=== PATIENT | female | born 1970 | race Caucasian/White ===

== ENCOUNTER 2023-06-08 14:44 | Emergency (ER) | payer OTHER, SELFPAY ==
--- NOTE | ~2023-06-08 | XR_ITS ---
EXAM: XR shoulder LT min 2V DATE: 06/08/2023 15:10 HISTORY: fall, pain to left shoulder today limited rom . COMPARISON: None available. FINDINGS: Decreased mineralization. No fracture or dislocation. No lytic or blastic lesion. Mild AC joint and glenohumeral joint degenerative change. No erosion or periosteal change. Soft tissues withi n normal limits. IMPRESSION: No acute osseous finding in the left shoulder. Reviewed, dictated and finalized at location [facility]. [employer]
[2023-06-08 14:52] VITALS: BP 130/74; PULSE 76; RESP 16; TEMP 36.6; O2SAT 100
--- NOTE | 2023-06-08 16:00 | ED.GENADULT ---
HPI - General Adult General Chief complaint: Extremity Injury, Upper Stated complaint: left shoulder injury Source: patient Mode of arrival: ambulatory Limitations: no limitations History of Present Illness HPI narrative: Patient presents for evaluation of left shoulder pain. She indicates she was walking with a four-post cane in her backyard around 1330 when she fell and hit her left shoulder against the ground. She did not hit her head. No LOC. She is not on blood thinners. She now reports 10/10 pain in the affected joint. No descriptive quality of the pain. No radicular component. Pain is worse with movement and palpation of the affected area. No paresthesias. She is right-hand dominant. Mother brought her for further evaluation. Patient has an underlying history of renal cell carcinoma and has completed T cell therapy for it. She states she had a prolonged hospitalization recently and was discharged home about one month ago. She occasionally gets dizzy but it has only happened one other time since her hospital discharge about 1 month ago. She denies any other symptoms that preceded the fall. She denies any other injuries related to the fall. Related Data Home Medications Medication Instructions Recorded Confirmed amlodipine 5 mg tablet 5 mg PO DAILY 06/08/23 06/08/23 atovaquone 750 mg/5 mL oral mg 06/08/23 suspension cyanocobalamin (vitamin B-12) 1,000 mcg IM MONTHLY 06/08/23 06/08/23 1,000 mcg/mL injection solution fluoxetine 10 mg capsule 10 mg PO DAILY 06/08/23 06/08/23 levothyroxine 175 mcg tablet 175 mcg PO DAILY 06/08/23 06/08/23 lidocaine 5 % topical patch 1 patch topical DAILY 06/08/23 06/08/23 lorazepam 1 mg tablet 1 mg PO PRN PRN Anxiety 06/08/23 06/08/23 metoclopramide HCl 5 mg tablet 5 mg PO QMWFSU 06/08/23 06/08/23 ondansetron HCl 8 mg tablet 8 mg PO Q6-8H PRN Nausea And 06/08/23 06/08/23 Vomiting oxcarbazepine 300 mg tablet 300 mg PO TID 06/08/23 06/08/23 pantoprazole 40 mg tablet,delayed 40 mg PO DAILY 06/08/23 06/08/23 release ursodiol 300 mg capsule 300 mg PO BID 06/08/23 06/08/23 valacyclovir 500 mg tablet mg 06/08/23 Allergies Allergy/AdvReac Type Severity Reaction Status Date / Time codeine Allergy Gastrointestinal Verified 06/08/23 15:03 Upset Review of Systems Review of Systems: CONSTITUTIONAL: Denies fever, chills, or sweats. EYES: Denies visual changes, redness, or discharge. ENT: Denies rhinorrhea, congestion, sore throat, or otalgia. CARDIOVASCULAR: Denies chest pain, palpitations, or edema. RESPIRATORY: Denies cough or dyspnea. GASTROINTESTINAL: Denies abdominal pain, nausea, vomiting, or diarrhea. GENITOURINARY: Denies dysuria or hematuria. SKIN: Denies rash or itching. MUSCULOSKELETAL: Reports left shoulder pain. NEUROLOGIC: Reports dizziness earlier prior to her follow-up, now resolved. Denies headache, numbness, dizziness, or weakness. PSYCHIATRIC: Denies anxiety or depression. [facility] Past Medical History Medical History (Updated 06/08/23 @ 16:12 by TYE HinesP, ) Hypoglycemia Renal cell carcinoma Surgical History Surgical History No pertinent past surgical history Family History Family History Mother Family history non-contributory Other Hypertension Social History Social History Smoking status: Never smoker Substance use: never Living arrangements: with family Gender identity (if verbalized by the patient): Female Sexual Orientation (if Verbalized by the Patient): Straight or Heterosexual Spiritual care concerns: No Exam Narrative: GENERAL: Well-appearing, well-nourished, and in no acute distress. HEAD: Normocephalic, atraumatic. EYES: PERRLA and EOMI. ENT: Nares clear, no rhinorrhea or epistaxis. Mucous membranes moist.
[2023-06-08 16:10] LABS: Glucose Point of Care 98 mg/dl (65-105)
== END 2023-06-08 16:17 | disposition home or self-care (01) ==
PROVIDERS: Emergency Provider Nurse Practitioner
DX: S40.012A Contusion of left shoulder, initial encounter (principal); W19.XXXA Unspecified fall, initial encounter; R42 Dizziness and giddiness; Z85.528 Personal history of other malignant neoplasm of kidney
CPT/HCPCS: 73030; 82948; 99203; G0463

== ENCOUNTER 2023-12-26 08:43 | Emergency (ER) | payer OTHER, SELFPAY ==
--- NOTE | ~2023-12-26 | XR_ITS ---
EXAMINATION: XR chest 2V DATE: 12/26/2023 09:18 INDICATION: Cough. Right lung mass. TECHNIQUE: frontal and lateral views of the chest were obtained. COMPARISON: None FINDINGS: Opacification of the inferior half of the right hemithorax suggesting a unilateral small to moderate- sized right pleural effusion and associated atelectasis. Underlying pneumonia or malignancy is not ex cludable. Left lung remains clear. No pulmonary edema, pneumothorax or left-sided pleural effusion. P ostoperative changes in the right hemithorax with multiple surgical clips at the right hilum. There i s slight rightward shift of the likely normal sized heart and mediastinum suggesting volume loss in t he right hemithorax. Additional surgical clips project over the inferior right hemithorax could repre sent cholecystectomy clips in the more cephalad than typical with elevation of the right hemidiaphrag m which is obscured by the adjacent pleural effusion and/or lung disease. IMPRESSION: 1. Opacification of the inferior half of the right hemithorax which could represent a small or modera te sized pleural effusion (favor the former as there are secondary signs of volume loss in the right hemithorax) and associated atelectasis. Underlying pneumonia or malignancy not excludable. 2. Surgical clips at the right hilum. Correlate for history of possible prior partial right pneumonec aris. Reviewed, dictated and finalized at location [facility]. IMPRESSION: 1. Opacification of the inferior half of the right hemithorax which could repre sent a small or moderate sized pleural effusion (favor the former as there are secondary signs of volume loss in the right hemithorax) and associated atelecta sis. Underlying pneumonia or malignancy not excludable. 2. Surgical clips at the right hilum. Correlate for history of possible prior p artial right pneumonectomy.
[2023-12-26 08:45] VITALS: BP 119/82; PULSE 112; RESP 20; TEMP 36.6; O2SAT 100
[2023-12-26 08:56] VITALS: RESP 28
--- NOTE | 2023-12-26 09:09 | ED.GENADULT ---
HPI - General Adult General Chief complaint: Unspecified Stated complaint: shortness of breath,blood pressure History of Present Illness HPI narrative: Patient presents with a cough. Patient has chronic lung problems and is on oxygen 2 L daily. Patient's pulse ox is 100% on 2 L nasal cannula respirations even and nonlabored. Patient states she is here she has had a cough for 2 months. Patient states she has a history of a tumor in her lung and she has received radiation and headache CT scan December 16 and will meet with her primary care provider December [address] results. Patient denies any shortness of breath no chest pain no fever no body aches. Patient declines testing for COVID-19 at this visit. Patient states he also added 2 new blood pressure medications by her primary care provider in her blood pressure has been running lower than it did in the past. Today's blood pressure reading is normal no dizziness no headache. Patient has a list of recent blood pressures instructed patient to follow-up with PCP office regarding blood pressure evaluation and medication management. Advised patient we do not draw labs here patient was very short with provider states she called her insurance company and was advised that we had the capability of drawing labs to evaluate her blood pressure at this facility. Politely discussed with patient we only provide acute care problems cough cold runny nose fever body aches sore throat. Patient very short with provider and very upset that we do not provide labs at this facility. Patient is agreeable to get a chest x-ray at today's visit to evaluate for pneumonia. Related Data Home Medications Medication Instructions Recorded Confirmed amlodipine 5 mg tablet 5 mg PO DAILY 06/08/23 06/08/23 atovaquone 750 mg/5 mL oral mg 06/08/23 suspension cyanocobalamin (vitamin B-12) 1,000 mcg IM MONTHLY 06/08/23 06/08/23 1,000 mcg/mL injection solution fluoxetine 10 mg capsule 10 mg PO DAILY 06/08/23 06/08/23 levothyroxine 175 mcg tablet 175 mcg PO DAILY 06/08/23 06/08/23 lidocaine 5 % topical patch 1 patch topical DAILY 06/08/23 06/08/23 lorazepam 1 mg tablet 1 mg PO PRN PRN Anxiety 06/08/23 06/08/23 metoclopramide HCl 5 mg tablet 5 mg PO QMWFSU 06/08/23 06/08/23 ondansetron HCl 8 mg tablet 8 mg PO Q6-8H PRN Nausea And 06/08/23 06/08/23 Vomiting oxcarbazepine 300 mg tablet 300 mg PO TID 06/08/23 06/08/23 pantoprazole 40 mg tablet,delayed 40 mg PO DAILY 06/08/23 06/08/23 release ursodiol 300 mg capsule 300 mg PO BID 06/08/23 06/08/23 valacyclovir 500 mg tablet mg 06/08/23 Allergies Allergy/AdvReac Type Severity Reaction Status Date / Time adhesive tape Allergy Unknown Verified 12/26/23 09:06 codeine Allergy Gastrointestinal Verified 12/26/23 09:06 Upset Review of Systems Review of Systems: CONSTITUTIONAL: Denies chills, or sweats. Reports fever and generalized body aches EYES: Denies visual changes, redness, or discharge. ENT: Denies otalgia. Reports nasal congestion runny nose and sore throat CARDIOVASCULAR: Denies chest pain, palpitations, or edema. RESPIRATORY: Denies dyspnea. Reports occasional cough GASTROINTESTINAL: Denies abdominal pain, nausea, vomiting, or diarrhea. GENITOURINARY: Denies dysuria or hematuria. SKIN: Denies rash or itching. MUSCULOSKELETAL: Denies back pain, joint pain, or myalgia. Reports generalized body aches NEUROLOGIC: Denies headache, numbness, or weakness. PSYCHIATRIC: Denies anxiety or depression. [facility] Past Medical History Medical History (Updated 12/26/23 @ 09:37 by RUIZ Choe) Hypoglycemia Renal cell carcinoma Surgical History Surgical History No pertinent past surgical history Family History Family History Mother Family history non-contributory Other Hypertension Social History
== END 2023-12-26 09:45 | disposition home or self-care (01) ==
PROVIDERS: Emergency Provider Nurse Practitioner Family
DX: R05.9 Cough, unspecified (principal); J18.9 Pneumonia, unspecified organism; Z99.81 Dependence on supplemental oxygen; D49.1 Neoplasm of unspecified behavior of respiratory system; Z85.528 Personal history of other malignant neoplasm of kidney
CPT/HCPCS: 71046; 99213; G0463